=== PATIENT | female | born 1975 | race Caucasian/White ===

== ENCOUNTER 2020-03-11 17:10 | Emergency (ER) | payer OTHER ==
[~2020-03-11] VITALS: Ht 167.6 cm; Wt 89.8 kg
[~2020-03-11 17:10] MED LIST: BACTRIM DS TAB1 EACH PO; CIPROFLOXACIN500 M3 PO; FLOMAX0.4 MG PO; GLUCOPHAGE1000 MG; HYDROCODON-ACE1 EAC7 PO; LANTUSSOLASTAR; LISINOPRIL10 MG; NAPROSYN500 MG PO; NITROFURANTOIN100 MG PO; PYRIDIUM200 M2 PO; PYRIDIUM200 MG PO; ULTRAM 50MG TAB50 MG PO
[2020-03-11] MEDS ORDERED: GLIPIZIDE 10 MG10 MG PO (17:19)
[2020-03-11 18:06] LABS: ABSOLUTE BASOPHILS 0.1 thou/uL (0.0-0.2); ABSOLUTE EOSINOPHILS 0.1 thou/uL (0.0-0.7); ABSOLUTE MONOCYTES 0.7 thou/uL (0.0-1.2); ABSOLUTE NEUTROPHILS 6.9 thou/uL (1.6-8.1); BASOPHILS 0.5 %; EOSINOPHILS 0.8 %; HEMATOCRIT 42.9 % (37.0-47.0); LYMPHOCYTES 28.1 %; MCH 27.3 pg (26.0-34.0); MCHC 32.7 g/dL (28.0-37.0); MCV 83.5 fL (80.0-100.0); MONOCYTES 6.1 %; MPV 11.1 fl. (7.2-11.1); NUCLEATED RBCS 0 /100WBC; PLATELET COUNT* 148 thou/uL (150-400); POLYS 64.5 %; RBC 5.14 mil/uL (4.20-5.00); WBC 10.6 thou/uL (4.0-11.0)
[2020-03-11 18:17] LABS: CALCIUM 8.5 mg/dL (8.5-10.1); CREATININE 0.8 mg/dL (0.6-1.3); POTASSIUM 4.3 mmol/L (3.5-5.1)
[2020-03-11 18:28] LABS: ALBUMIN 3.6 g/dL (3.4-5.0); TOTAL BILIRUBIN 0.4 mg/dL (<0.1-1.0); TOTAL PROTEIN 8.1 g/dL (6.4-8.2)
[2020-03-11 19:15] LABS: URINE BILIRUBIN NEGATIVE (Negative); URINE BLOOD 3+ (Negative); URINE CLARITY CLEAR; URINE COLOR YELLOW; URINE GLUCOSE-RANDOM 3+ (Negative); URINE KETONES 2+ (Negative); URINE LEUKOCYTES-REFLEX NEGATIVE (Negative); URINE NITRITE-REFLEX NEGATIVE (Negative); URINE PROTEIN NEGATIVE (Negative); URINE UROBILINOGEN 0.2 E.U./dl (0.2-1.0)
[2020-03-11 19:22] LABS: SQUAMOUS 4-10 Moderate /LPF (0-3); URINE RBC >20 Many /HPF (0-2)
[2020-03-11 19:23] LABS: BACTERIA-REFLEX 1-9 Few /HPF (None Seen); CASTS None Seen /LPF (None Seen); CRYSTALS None Seen /LPF (None Seen); MUCUS None Seen strn/LPF (None Seen); URINE WBC-REFLEX 0-5 Rare /HPF (0-5)
[2020-03-11] MEDS ORDERED: LISINOPRIL20 MG PO (19:51)
[2020-03-11 20:10] VITALS: BP 130/75
== END 2020-03-11 20:14 | disposition home or self-care (01) ==
LOC: M.ERS 17:10
PROVIDERS: Physician Assistant
DX: I10 Essential (primary) hypertension (principal); Z20.828 Contact with and (suspected) exposure to other viral communicable diseases; E11.9 Type 2 diabetes mellitus without complications; Z79.4 Long term (current) use of insulin; Z79.899 Other long term (current) drug therapy